=== PATIENT | female | born 1985 | race African-American/Black ===

== ENCOUNTER 2016-03-31 09:37 | Emergency (ER) | payer MEDICAID, OTHER ==
[~2016-03-31] VITALS: Ht 170.2 cm; Wt 76.7 kg
[~2016-03-31 09:37] MED LIST: HYDR-3534 PO; NAPR-576 PO; PRIL20CA PO; Z.0.BCPILL PO
[2016-03-31 09:53] VITALS: BP 133/82; PULSE 66; RESP 16; TEMP 98.1; O2SAT 100
[2016-03-31] MEDS ORDERED: OSEL75 PO (10:07)
--- NOTE | 2016-03-31 10:12 | PD ---
HPI . Sinus congestion and facial pain Chief Complaint: Cold / Flu Symptoms Time Seen by Provider: 10:02 Travel History International Travel<30 days: No Contact w/Intl Traveler<30days: No Traveled to known affect area: No History of Present Illness HPI Patient presents with about a 3 day history of nasal congestion and facial pain. She reports taking DayQuil and doubt with social plus cold medicine without relief. Patient reports she was diagnosed with the flu about 3 Days ago and has been on Tamiflu. She states that her fever has abated with the Tamiflu. However, she continues to have the nasal congestion and facial pain. She states that it is getting worse rather than better. PFSH Past Medical History Medical History: Denies Significant Hx Blood Disorders: Yes (SICKLE CELL TRAIT) Depression: Yes Diminished Hearing: No Headaches: Yes Psychiatric: Yes Respiratory: Yes (PNEUMOTHORAX 2009) Immunizations Current: Yes Migraines: Yes Sickle Cell Disease: Yes (Trait) ?: Not : 1 Para: 1 Past Surgical History Gynecologic Surgery: Yes (LEEP) Pacemaker: No Thoracic Surgery: Yes (Chest tubes) Other Surgery: No Social History Alcohol Use: Yes (Occ.) Tobacco Use: No Substance Use: No Allergies-Medications (Allergen,Severity, Reaction): Coded Allergies: No Known Allergies (Verified , 08/06/15) Reported Meds & Prescriptions Reported Meds & Active Scripts Active Naproxen 500 Mg Tab 500 Mg PO BID PRN Prilosec 20 mg (Omeprazole) 20 Mg Capcr 20 Mg PO DAILY Lortab 7.5 mg/325 mg (Hydrocodone/Acetaminophen 7.5 mg/325 mg) 1 Tab 1 Tab PO Q4H PRN Reported Control Pills (Miscellaneous Medication) Tab 1 Tab PO DAILY Review of Systems Except as stated in HPI: all other systems reviewed are Neg General / Constitutional: No: Fever (fever has abated.), Chills Eyes: No: Blurred Vision HENT: Positive: Headaches (facial pain), Congestion Physical Exam Narrative GENERAL: Awake and alert and in no acute distress. SKIN: Warm and dry. HEAD: Atraumatic. Normocephalic. EYES: Pupils equal and round. ENT: No nasal bleeding or discharge. Mucous membranes pink and moist. Edema of the nasal mucosa, left worse than right. NECK: Trachea midline. Neck is supple with no cervical lymphadenopathy. CARDIOVASCULAR: Regular rate and rhythm. Heart sounds are normal. RESPIRATORY: No accessory muscle use. Lungs are clear with full air movement throughout. MUSCULOSKELETAL: No obvious deformities. No edema. NEUROLOGICAL: Awake and alert. No obvious cranial nerve deficits. Motor grossly within normal limits. Normal speech. PSYCHIATRIC: Appropriate mood and affect; insight and judgment normal. Data Data Last Documented VS Vital Signs Date Time Temp Pulse Resp B/P Pulse Ox O2 Delivery O2 Flow Rate FiO2 03/31/16 09:53 98.1 66 16 133/82 100 Room Air MDM Medical Decision Making Medical Screen Exam Complete: Yes Emergency Medical Condition: Yes Differential Diagnosis Differential diagnosis includes but is not limited to influenza, upper respiratory infection, bronchitis, pneumonia Narrative Course Patient presents with nasal congestion and facial pain. Physical exam shows edema of the nasal mucosa. Diagnosis Primary Impression: Sinusitis Qualified Code: J01.00 - Acute non-recurrent maxillary sinusitis Additional Instructions: I recommend the use of a Neti Pot. You may use a nasal spray such as Afrin for up to 3 days as needed for nasal congestion. You may take pseudoephedrine as needed for congestion. You will need to sign for this at the pharmacy. You may take plain Mucinex, 1200 mg twice a day as needed for thick secretions. You may take a cough syrup such as Delsym as needed for cough. Ibuprofen, 800 mg 3 times a day as needed for pain. Disposition: 01 DISCHARGE HOME Condition: Stable Mckenna Del Valle MD Mar 31, 2016 10:12
== END 2016-03-31 10:25 | disposition home or self-care (01) ==
LOC: PHED 09:37
DX: J01.00 Acute maxillary sinusitis, unspecified (principal); Z86.2 Personal history of diseases of the blood and blood-forming organs and certain disorders involving the immune mechanism; Z86.59 Personal history of other mental and behavioral disorders; Z87.09 Personal history of other diseases of the respiratory system; Z86.69 Personal history of other diseases of the nervous system and sense organs
CPT/HCPCS: 99283

== ENCOUNTER 2016-06-22 07:54 | Emergency (ER) | payer MEDICAID, OTHER ==
[~2016-06-22] VITALS: Ht 170.2 cm; Wt 78.0 kg
[~2016-06-22 07:54] MED LIST changes: -HYDR-3534 PO; -NAPR-576 PO; +OSEL75 PO; -PRIL20CA PO; -Z.0.BCPILL PO
[2016-06-22 07:56] VITALS: BP 134/74; PULSE 76; RESP 18; TEMP 98.8; O2SAT 100
[2016-06-22] MEDS ORDERED: SODIUM CHLOR 0.9% 1000 ML INJ 1,000 ML IV ONE (08:19)
--- NOTE | 2016-06-22 08:22 | PD ---
HPI Chief Complaint: Headache Time Seen by Provider: 08:19 Travel History International Travel<30 days: No Contact w/Intl Traveler<30days: No Traveled to known affect area: No History of Present Illness HPI 30-year-old female with history of migraine headaches, presents to the ER today because she states that for 3 days she has had a worsening of migraine headache , started 3 days ago at work and she could not get away and could not take any of her medications because she did not have it on her. She states that it has been continuous for the last 3 days, currently a 10 out of 10 with nausea. She denies any stiff neck, fevers, vomiting, or any other symptoms. She states that these are her usual migraines. Modifying Factors: None Associated Signs & Symptoms: Migraine headache Risk Factors: History of migraine headache PFSH Past Medical History Blood Disorders: Yes (SICKLE CELL TRAIT) Depression: Yes Diminished Hearing: No Headaches: Yes Psychiatric: Yes Respiratory: Yes (PNEUMOTHORAX 2009) Immunizations Current: Yes Migraines: Yes Sickle Cell Disease: Yes (Trait) Tetanus Vaccination: < 5 Years ?: Not : 1 Para: 1 Past Surgical History Gynecologic Surgery: Yes (LEEP) Pacemaker: No Thoracic Surgery: Yes (Chest tubes) Other Surgery: No Social History Alcohol Use: Yes (Occ.) Tobacco Use: No Substance Use: No Allergies-Medications (Allergen,Severity, Reaction): Coded Allergies: No Known Allergies (Verified , 06/22/16) Reported Meds & Prescriptions Reported Meds & Active Scripts Active Reported Tamiflu (Oseltamivir Phosphate) 75 Mg Cap 75 Mg PO DAILY Review of Systems Except as stated in HPI: all other systems reviewed are Neg Physical Exam Narrative GENERAL: Well-developed young -[place] female patient currently in mild distress. Awake and oriented 3. SKIN: Focused skin assessment warm/dry. HEAD: Atraumatic. Normocephalic. EYES: Pupils equal and round. No scleral icterus. No injection or drainage. ENT: No nasal bleeding or discharge. Mucous membranes pink and moist. NECK: Trachea midline. No JVD. CARDIOVASCULAR: Regular rate and rhythm. No murmur appreciated. RESPIRATORY: No accessory muscle use. Clear to auscultation. Breath sounds equal bilaterally. GASTROINTESTINAL: Abdomen soft, non-tender, nondistended. Hepatic and splenic margins not palpable. MUSCULOSKELETAL: No obvious deformities. No clubbing. No cyanosis. No edema. NEUROLOGICAL: Awake and alert. No obvious cranial nerve deficits. Motor grossly within normal limits. Normal speech. PSYCHIATRIC: Appropriate mood and affect; insight and judgment normal. Data Data Last Documented VS Vital Signs Date Time Temp Pulse Resp B/P Pulse Ox O2 Delivery O2 Flow Rate FiO2 06/22/16 08:38 100 06/22/16 07:56 98.8 76 18 134/74 Room Air Orders Ecg Monitoring (06/22/16 08:19) Iv Access Insert/Monitor (06/22/16 08:19) Oximetry (06/22/16 08:19) Sodium Chloride 0.9% Flush (Ns Flush) (06/22/16 08:30) Diphenhydramine Inj (Benadryl Inj) (06/22/16 08:30) Metoclopramide Inj (Reglan Inj) (06/22/16 08:30) Sodium Chlor 0.9% 1000 Ml Inj (Ns 1000 M (06/22/16 08:19) Ketorolac Inj (Toradol Inj) (06/22/16 09:00) MDM Medical Decision Making Medical Screen Exam Complete: Yes Emergency Medical Condition: Yes Medical Record Reviewed: Yes Differential Diagnosis Migraine headache versus tension headache Narrative Course Patient reports that this is her usual headache. She was given IV fluids, Reglan, Benadryl, and Toradol in the ER. On reevaluation at 9:28 AM, she reports that her headache is only slight now and she is resting comfortably. At this point, my plan would be to release her with follow-up to primary care physician as needed. We will give her further symptoms relief for the migraine headaches. Return for any worsening in symptoms as needed. The plan has been discussed with her and she states understanding. Diagnosis Primary Impression: Headache Med/Other Pt SpecificInfo: Prescription(s) given Scripts Metoclopramide (Reglan)10 Mg Tab10 Mg PO QID PRN (MIGRAINE HEADACHE) #20 TAB Ref 0 Prov:Virgen Kennedy MD 06/22/16 Disposition: 01 DISCHARGE HOME Condition: Stable Virgen Kennedy MD June 22, 2016 08:22
[2016-06-22] MEDS ORDERED: METOCLOPRAMIDE HCL 10 MG/2 ML VIAL IVP ONE (08:30)
[2016-06-22] MEDS ORDERED: SODIUM CHLORIDE 0.9% FLUSH 10 ML FLUSH IVF PRN (08:30)
[2016-06-22] MEDS ORDERED: diphenhydrAMINE HCL 50 MG/ML VIAL IVP ONE (08:30)
[2016-06-22 08:38] VITALS: O2SAT 100
[2016-06-22] MEDS ORDERED: KETOROLAC TROMETHAMINE 30 MG/ML (IVP) VIAL IV PUSH ONE (09:00)
[2016-06-22] MEDS ORDERED: REGL10TA5 PO (09:29)
[2016-06-22 11:42] VITALS: BP 128/70
== END 2016-06-22 11:53 | disposition home or self-care (01) ==
LOC: NEPE 07:54
DX: G43.909 Migraine, unspecified, not intractable, without status migrainosus (principal); D57.3 Sickle-cell trait
CPT/HCPCS: 96361; 96374; 96375; 99282; J1200; J1885; J2765; J7030